=== PATIENT | female | born 1985 | race Caucasian/White ===

== ENCOUNTER 2021-07-08 02:31 | Emergency (ER) | payer SELFPAY ==
[2021-07-08 02:37] VITALS: BP 158/100; PULSE 108; O2SAT 98
[2021-07-08 02:40] VITALS: BP 136/87; PULSE 94; RESP 22; TEMP 37.1; O2SAT 98; BMI 29.5
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
[2021-07-08] MEDS: Lidocaine HCl 2%/Epi 1:100,000 20 ML VIAL INFILTRATI (02:59)
--- NOTE | 2021-07-08 04:22 | PC.NURSE ---
pt is refusing labs, ct scan, flynn at bedside, pt was ambulated to bathroom with flynn and rn present. pt back to bed, left arm is wrapped till dr broderick can be back to finish.
== END 2021-07-08 05:25 ==
PROVIDERS: Emergency Provider Student in an Organized Health Care Education/Training Program
DX: S51.812A Laceration without foreign body of left forearm, initial encounter (principal); V43.51XA Car driver injured in collision with sport utility vehicle in traffic accident, initial encounter; Y93.89 Activity, other specified; Y92.415 Exit ramp or entrance ramp of street or highway as the place of occurrence of the external cause; Y99.9 Unspecified external cause status
CPT/HCPCS: 12032; 99283; 99284